=== PATIENT | female | born 1980 | race Caucasian/White ===

== ENCOUNTER 2017-04-13 10:44 | Outpatient (CLI) | payer OTHER ==
--- NOTE | 2017-04-13 13:08 | DIAGNOSTIC IMAGING REPORT ---
PROCEDURE: MR BRAIN W/WO CONTRAST INDICATION: PITUITARY MICROADENOMA TECHNIQUE: Noncontrast T1 sagittal and T2 coronal images of the brain. T2, FLAIR, gradient and diffusion axial images with ADC map. Pregadolinium thin-cut T1 sagittal and coronal images of the pituitary fossa. Following 20 ml of intravenous gadolinium, thin-cut T1 sagittal and coronal images of the pituitary fossa were obtained followed by FAT-SAT T1 axial images of the brain. COMPARISON: None. FINDINGS: There is a 2 mm hypoenhancing area in the right side of the pituitary with mild contralateral displacement of the pituitary stalk. Normal sulci, ventricular system and brain parenchyma. No acute CVA, hemorrhage, mass or abnormal enhancement of the brain parenchyma. Normal vascular flow voids. Mild left maxillary sinus disease. Mastoids are clear. IMPRESSION: 1. 2 mm hypoenhancing area in the right side of the pituitary gland suspicious for a microadenoma 2. Left maxillary sinus disease
== END 2017-04-13 23:00 ==
LOC: MRI SRH 10:44
DX: J32.0 Chronic maxillary sinusitis (principal)